=== PATIENT | male | born 1955 | race Caucasian/White ===

== ENCOUNTER 2017-11-09 17:32 | Inpatient (IN) | payer OTHER ==
[2017-11-09] MEDS: SOD CHLORIDE 0.9% 1,000 ML IV (18:07)
[2017-11-09 18:18] LABS: ADD MAN DIFF? NO
[2017-11-09 18:22] LABS: ABNORMAL IP MESSAGE 1; BASOPHILS % 0.4 % (0.0-2.0); EOSINOPHILS # 0.1 10^3/ul (0.0-0.5); EOSINOPHILS % 1.2 % (0.0-7.0); HEMATOCRIT 32.3 % (42.0-52.0); HEMOGLOBIN 9.9 g/dl (14.0-18.0); LYMPHOCYTES # 1.6 10^3/ul (0.8-2.9); LYMPHOCYTES % 17.4 % (15.0-51.0); MEAN CORPUSCULAR HEMOGLOBIN 23.8 pg (29.0-33.0); MEAN CORPUSCULAR HGB CONC 30.7 g/dl (32.0-37.0); MEAN CORPUSCULAR VOLUME 77.6 fl (82.0-101.0); MEAN PLATELET VOLUME 11.3 fl (7.4-10.4); MONOCYTE # 0.7 10^3/ul (0.3-0.9); MONOCYTES % 8.1 % (0.0-11.0); NEUTROPHIL # 6.6 10^3/ul (1.6-7.5); NEUTROPHILS % 72.7 % (39.0-77.0); PLATELET COUNT 275 10^3/UL (140-415); POSITIVE DIFF @See below; RED BLOOD COUNT 4.16 10^6/ul (4.70-6.10); RED CELL DISTRIBUTION WIDTH 22.8 % (11.5-14.5)
[2017-11-09 18:22] LABS: WHITE BLOOD COUNT 9.1 10^3/ul (4.8-10.8)
[2017-11-09 18:45] LABS: ALANINE AMINOTRANSFERASE 33 IU/L (13-69); ALBUMIN/GLOBULIN RATIO 1.42; ALKALINE PHOSPHATASE 76 IU/L (42-121); ANION GAP 20 (8-16); ASPARTATE AMINO TRANSFERASE 30 IU/L (15-46); BILIRUBIN,INDIRECT 0.4 mg/dl (0-1.1); BILIRUBIN,TOTAL 0.4 mg/dl (0.2-1.3); BLOOD UREA NITROGEN 27 mg/dl (7-20); CALCIUM 9.4 mg/dl (8.4-10.2); CARBON DIOXIDE 21 mmol/L (21-31); CHLORIDE 107 mmol/L (97-110); CREATININE 0.78 mg/dl (0.61-1.24); GLUCOSE 73 mg/dl (70-220); POTASSIUM 3.9 mmol/L (3.5-5.1); SODIUM 144 mmol/L (135-144); TOTAL PROTEIN 6.8 g/dl (6.1-8.1)
[2017-11-09 18:50] LABS: ACETAMINOPHEN < 10.0 ug/ml (10.0-30.0); ETHANOL < 10.0 mg/dl; SALICYLATE < 1.0 mg/dl (5.0-30.0)
[2017-11-09] MEDS: OLANZAPINE (ODT) 5 MG TAB ODT (20:16)
[2017-11-10 00:06] LABS: TROPONIN-I < 0.010 ng/ml (0.000-0.120)
[2017-11-10 00:09] LABS: ADD UMIC NO; UR ASCORBIC ACID NEGATIVE (NEGATIVE); UR BILIRUBIN (Dip) NEGATIVE (NEGATIVE); UR BLOOD (Dip) NEGATIVE (NEGATIVE); UR CLARITY CLEAR (CLEAR); UR COLOR YELLOW (YELLOW); UR GLUCOSE (Dip) NEGATIVE (NEGATIVE); UR KETONES (Dip) 2+ mg/dL (NEGATIVE); UR LEUKOCYTE ESTERASE (Dip) NEGATIVE Leu/ul (NEGATIVE); UR NITRITE (Dip) NEGATIVE (NEGATIVE); UR SPECIFIC GRAVITY (Dip) 1.023 (1.003-1.030); UR TOTAL PROTEIN (Dip) NEGATIVE (NEGATIVE); UR UROBILINOGEN (Dip) NEGATIVE (NEGATIVE)
[2017-11-10 00:19] LABS: AMPHETAMINE/METHAMPHETAMINE Negative (NEGATIVE); BARBITURATES Negative (NEGATIVE); BENZODIAZEPINES Negative (NEGATIVE); CANNABINOIDS Negative (NEGATIVE); COCAINE Negative (NEGATIVE); OPIATES Negative (NEGATIVE)
[2017-11-10] MEDS: OLANZAPINE (ODT) 5 MG TAB ODT ×3 (09:25→20:33)
[2017-11-11] MEDS ORDERED: NACL 0.9% 3 ML SYG IV (06:30)
[2017-11-11] MEDS ORDERED: ONDANSETRON 4 MG INJ IV (06:30)
[2017-11-11] MEDS ORDERED: ACETAMINOPHEN 325 MG TAB PO (06:30)
[2017-11-11] MEDS ORDERED: LORAZEPAM 2 MG INJ IV (06:30)
[2017-11-11] MEDS: SOD CHLORIDE 0.9% 500 ML IV (07:00)
[2017-11-11 08:42] LABS: ADD MAN DIFF? NO
[2017-11-11 08:53] LABS: ABNORMAL IP MESSAGE 1; BASOPHILS % 0.3 % (0.0-2.0); EOSINOPHILS # 0.3 10^3/ul (0.0-0.5); EOSINOPHILS % 4.2 % (0.0-7.0); HEMATOCRIT 32.8 % (42.0-52.0); HEMOGLOBIN 9.8 g/dl (14.0-18.0); LYMPHOCYTES # 1.5 10^3/ul (0.8-2.9); LYMPHOCYTES % 19.5 % (15.0-51.0); MEAN CORPUSCULAR HEMOGLOBIN 23.2 pg (29.0-33.0); MEAN CORPUSCULAR HGB CONC 29.9 g/dl (32.0-37.0); MEAN CORPUSCULAR VOLUME 77.5 fl (82.0-101.0); MEAN PLATELET VOLUME 11.3 fl (7.4-10.4); MONOCYTE # 0.6 10^3/ul (0.3-0.9); MONOCYTES % 7.1 % (0.0-11.0); NEUTROPHIL # 5.4 10^3/ul (1.6-7.5); NEUTROPHILS % 68.5 % (39.0-77.0); PLATELET COUNT 248 10^3/UL (140-415); POSITIVE DIFF @See below; RED BLOOD COUNT 4.23 10^6/ul (4.70-6.10); RED CELL DISTRIBUTION WIDTH 23.6 % (11.5-14.5)
[2017-11-11 08:53] LABS: WHITE BLOOD COUNT 7.9 10^3/ul (4.8-10.8)
[2017-11-11] MEDS ORDERED: OLANZAPINE 5 MG TAB PO (09:00)
[2017-11-11 09:01] LABS: IRON 15 ug/dl (35-150)
[2017-11-11 09:03] LABS: ALANINE AMINOTRANSFERASE 24 IU/L (13-69); ALBUMIN 3.1 g/dl (3.3-4.9); ALBUMIN/GLOBULIN RATIO 1.19; ALKALINE PHOSPHATASE 63 IU/L (42-121); ANION GAP 8 (8-16); ASPARTATE AMINO TRANSFERASE 17 IU/L (15-46); BLOOD UREA NITROGEN 20 mg/dl (7-20); CALCIUM 8.8 mg/dl (8.4-10.2); CARBON DIOXIDE 27 mmol/L (21-31); CHLORIDE 111 mmol/L (97-110); CREATININE 0.62 mg/dl (0.61-1.24); GLUCOSE 94 mg/dl (70-220); POTASSIUM 3.7 mmol/L (3.5-5.1); SODIUM 142 mmol/L (135-144); TOTAL PROTEIN 5.7 g/dl (6.1-8.1)
[2017-11-11 09:05] LABS: CREATINE KINASE 46 IU/L (23-200)
[2017-11-11 09:10] LABS: % IRON SATURATION 5 % SAT (22-52); TOTAL IRON BINDING CAPACITY 303 ug/dl (241-421)
[2017-11-11 09:16] LABS: CK INDEX 1.8; CK-MB 0.81 ng/ml (0.0-2.4); TROPONIN-I < 0.010 ng/ml (0.000-0.120)
[2017-11-11 09:18] LABS: FREE T4 (FREE THYROXINE) 0.97 ng/dl (0.78-2.44)
[2017-11-11 09:20] LABS: FREE T3 2.25 pg/ml (2.77-5.27)
[2017-11-11] MEDS ORDERED: ATROPINE 1 MG/10 ML SYRINGE IV ×2 (10:30→11:30)
[2017-11-11] MEDS: FERROUS SULFATE (EC) 325 MG TAB PO ×2 (13:58→20:46)
[2017-11-11 15:02] LABS: CREATINE KINASE 49 IU/L (23-200)
[2017-11-11 15:14] LABS: CK INDEX 1.4; CK-MB 0.69 ng/ml (0.0-2.4); TROPONIN-I < 0.010 ng/ml (0.000-0.120)
[2017-11-12] MEDS: FERROUS SULFATE (EC) 325 MG TAB PO ×3 (09:00→21:01)
[2017-11-12 09:32] LABS: MAGNESIUM 1.7 mg/dl (1.7-2.5)
[2017-11-12 09:41] LABS: HEMOGLOBIN A1C 5.1 % (0-5.9)
[2017-11-12] MEDS: SOD FERRIC GLUC COMPLX 125 MG in SOD CHLORIDE 0.9% 100 ML IVPB (17:48)
[2017-11-13] MEDS: FERROUS SULFATE (EC) 325 MG TAB PO ×3 (08:13→20:56)
[2017-11-13 09:20] LABS: ADD MAN DIFF? NO
[2017-11-13 09:27] LABS: WHITE BLOOD COUNT 7.9 10^3/ul (4.8-10.8)
[2017-11-13 09:27] LABS: ABNORMAL IP MESSAGE 1; BASOPHILS % 0.3 % (0.0-2.0); EOSINOPHILS # 0.3 10^3/ul (0.0-0.5); EOSINOPHILS % 4.2 % (0.0-7.0); HEMATOCRIT 35.1 % (42.0-52.0); HEMOGLOBIN 10.4 g/dl (14.0-18.0); LYMPHOCYTES # 1.6 10^3/ul (0.8-2.9); LYMPHOCYTES % 19.8 % (15.0-51.0); MEAN CORPUSCULAR HEMOGLOBIN 23.5 pg (29.0-33.0); MEAN CORPUSCULAR HGB CONC 29.6 g/dl (32.0-37.0); MEAN CORPUSCULAR VOLUME 79.2 fl (82.0-101.0); MONOCYTE # 0.7 10^3/ul (0.3-0.9); MONOCYTES % 8.4 % (0.0-11.0); NEUTROPHIL # 5.3 10^3/ul (1.6-7.5); NEUTROPHILS % 66.9 % (39.0-77.0); PLATELET COUNT 209 10^3/UL (140-415); POSITIVE DIFF @See below; RED BLOOD COUNT 4.43 10^6/ul (4.70-6.10); RED CELL DISTRIBUTION WIDTH 23.6 % (11.5-14.5)
[2017-11-13 09:51] LABS: MAGNESIUM 1.7 mg/dl (1.7-2.5)
[2017-11-13 10:21] LABS: ANION GAP 7 (8-16); BLOOD UREA NITROGEN 19 mg/dl (7-20); CALCIUM 8.8 mg/dl (8.4-10.2); CARBON DIOXIDE 32 mmol/L (21-31); CHLORIDE 107 mmol/L (97-110); CREATININE 0.64 mg/dl (0.61-1.24); GLUCOSE 94 mg/dl (70-220); POTASSIUM 3.8 mmol/L (3.5-5.1); SODIUM 142 mmol/L (135-144)
[2017-11-13 11:17] LABS: PHOSPHORUS 3.5 mg/dl (2.5-4.9)
[2017-11-13] MEDS ORDERED: COLLAGENASE 5 GM (UD JAR) TOP (11:30)
[2017-11-13] MEDS: BISACODYL (EC) 5 MG TAB PO (12:08)
[2017-11-13] MEDS: COLLAGENASE 5 GM (UD JAR) TOP (12:08)
[2017-11-13] MEDS: DOCUSATE SODIUM 100 MG CAP PO (12:08)
[2017-11-14 08:28] LABS: MAGNESIUM 1.7 mg/dl (1.7-2.5)
[2017-11-14] MEDS: FERROUS SULFATE (EC) 325 MG TAB PO ×3 (08:46→20:53)
[2017-11-14] MEDS: COLLAGENASE 5 GM (UD JAR) TOP (08:46)
[2017-11-14] MEDS: ESCITALOPRAM 10 MG TAB PO (15:29)
[2017-11-15] MEDS: FERROUS SULFATE (EC) 325 MG TAB PO ×3 (08:26→21:17)
[2017-11-15] MEDS: ESCITALOPRAM 10 MG TAB PO (08:26)
[2017-11-15] MEDS: COLLAGENASE 5 GM (UD JAR) TOP (08:32)
[2017-11-15 08:33] LABS: MAGNESIUM 1.8 mg/dl (1.7-2.5)
[2017-11-15] MEDS: ARIPIPRAZOLE 5 MG TAB PO (15:56)
[2017-11-16 07:46] LABS: MAGNESIUM 1.8 mg/dl (1.7-2.5)
[2017-11-16] MEDS: LORAZEPAM 2 MG INJ IV (07:49)
[2017-11-16] MEDS: HALOPERIDOL 5 MG INJ IM (07:49)
[2017-11-16] MEDS: FERROUS SULFATE (EC) 325 MG TAB PO ×3 (09:00→20:56)
[2017-11-16] MEDS: COLLAGENASE 5 GM (UD JAR) TOP (15:55)
[2017-11-16] MEDS: ESCITALOPRAM 10 MG TAB PO (15:55)
[2017-11-16] MEDS: ARIPIPRAZOLE 5 MG TAB PO (15:55)
[2017-11-17] MEDS: COLLAGENASE 5 GM (UD JAR) TOP (08:17)
[2017-11-17] MEDS: ARIPIPRAZOLE 5 MG TAB PO (08:17)
[2017-11-17] MEDS: ESCITALOPRAM 10 MG TAB PO (08:18)
[2017-11-17] MEDS: FERROUS SULFATE (EC) 325 MG TAB PO ×3 (08:18→20:40)
[2017-11-17] MEDS: LORAZEPAM 0.5 MG TAB PO (10:31)
[2017-11-18] MEDS: ARIPIPRAZOLE 5 MG TAB PO (08:34)
[2017-11-18] MEDS: COLLAGENASE 5 GM (UD JAR) TOP (08:34)
[2017-11-18] MEDS: ESCITALOPRAM 10 MG TAB PO (08:35)
[2017-11-18] MEDS: FERROUS SULFATE (EC) 325 MG TAB PO ×3 (08:35→21:09)
[2017-11-19] MEDS: ESCITALOPRAM 10 MG TAB PO (08:46)
[2017-11-19] MEDS: FERROUS SULFATE (EC) 325 MG TAB PO ×3 (08:46→20:25)
[2017-11-19] MEDS: ARIPIPRAZOLE 5 MG TAB PO (08:46)
[2017-11-19] MEDS: COLLAGENASE 5 GM (UD JAR) TOP (08:46)
[2017-11-19 16:54] LABS: ADD MAN DIFF? NO
[2017-11-19 16:55] LABS: ABNORMAL IP MESSAGE 1; BASOPHIL # 0.1 10^3/ul (0.0-0.1); BASOPHILS % 0.8 % (0.0-2.0); EOSINOPHILS # 0.2 10^3/ul (0.0-0.5); EOSINOPHILS % 2.8 % (0.0-7.0); HEMATOCRIT 32.5 % (42.0-52.0); HEMOGLOBIN 9.5 g/dl (14.0-18.0); LYMPHOCYTES # 1.9 10^3/ul (0.8-2.9); LYMPHOCYTES % 29.5 % (15.0-51.0); MEAN CORPUSCULAR HEMOGLOBIN 23.1 pg (29.0-33.0); MEAN CORPUSCULAR HGB CONC 29.2 g/dl (32.0-37.0); MEAN CORPUSCULAR VOLUME 79.1 fl (82.0-101.0); MONOCYTE # 0.6 10^3/ul (0.3-0.9); MONOCYTES % 9.9 % (0.0-11.0); NEUTROPHIL # 3.7 10^3/ul (1.6-7.5); NEUTROPHILS % 56.7 % (39.0-77.0); PLATELET COUNT 202 10^3/UL (140-415); POSITIVE DIFF @See below; RED BLOOD COUNT 4.11 10^6/ul (4.70-6.10)
[2017-11-19 16:55] LABS: WHITE BLOOD COUNT 6.4 10^3/ul (4.8-10.8)
[2017-11-20] MEDS: ESCITALOPRAM 10 MG TAB PO (08:55)
[2017-11-20] MEDS: COLLAGENASE 5 GM (UD JAR) TOP (08:55)
[2017-11-20] MEDS: ARIPIPRAZOLE 5 MG TAB PO (08:55)
[2017-11-20] MEDS: FERROUS SULFATE (EC) 325 MG TAB PO ×3 (08:55→20:50)
[2017-11-21] MEDS: ARIPIPRAZOLE 5 MG TAB PO (09:14)
[2017-11-21] MEDS: ESCITALOPRAM 10 MG TAB PO (09:14)
[2017-11-21] MEDS: COLLAGENASE 5 GM (UD JAR) TOP (09:14)
[2017-11-21] MEDS: FERROUS SULFATE (EC) 325 MG TAB PO ×4 (09:14→21:55)
[2017-11-22] MEDS: ESCITALOPRAM 10 MG TAB PO (08:59)
[2017-11-22] MEDS: FERROUS SULFATE (EC) 325 MG TAB PO ×3 (08:59→21:00)
[2017-11-22] MEDS: ARIPIPRAZOLE 5 MG TAB PO (08:59)
[2017-11-22] MEDS: COLLAGENASE 5 GM (UD JAR) TOP (16:53)
[2017-11-23] MEDS: ARIPIPRAZOLE 5 MG TAB PO (08:56)
[2017-11-23] MEDS: FERROUS SULFATE (EC) 325 MG TAB PO ×3 (08:56→21:02)
[2017-11-23] MEDS: ESCITALOPRAM 10 MG TAB PO (08:56)
[2017-11-23] MEDS: COLLAGENASE 5 GM (UD JAR) TOP (13:05)
[2017-11-24] MEDS: ACETAMINOPHEN 325 MG TAB PO (01:58)
[2017-11-24] MEDS: ARIPIPRAZOLE 5 MG TAB PO (08:32)
[2017-11-24] MEDS: FERROUS SULFATE (EC) 325 MG TAB PO ×3 (08:32→20:59)
[2017-11-24] MEDS: ESCITALOPRAM 10 MG TAB PO (08:32)
[2017-11-24] MEDS: COLLAGENASE 5 GM (UD JAR) TOP (08:33)
[2017-11-25] MEDS: ESCITALOPRAM 10 MG TAB PO (09:05)
[2017-11-25] MEDS: FERROUS SULFATE (EC) 325 MG TAB PO ×3 (09:05→20:51)
[2017-11-25] MEDS: ARIPIPRAZOLE 5 MG TAB PO (09:05)
[2017-11-25] MEDS: COLLAGENASE 5 GM (UD JAR) TOP (09:05)
[2017-11-26] MEDS: ARIPIPRAZOLE 5 MG TAB PO (08:26)
[2017-11-26] MEDS: ESCITALOPRAM 10 MG TAB PO (08:26)
[2017-11-26] MEDS: COLLAGENASE 5 GM (UD JAR) TOP (08:26)
[2017-11-26] MEDS: FERROUS SULFATE (EC) 325 MG TAB PO ×3 (08:26→21:41)
[2017-11-27] MEDS: ESCITALOPRAM 10 MG TAB PO (08:53)
[2017-11-27] MEDS: FERROUS SULFATE (EC) 325 MG TAB PO ×3 (08:53→21:14)
[2017-11-27] MEDS: ARIPIPRAZOLE 5 MG TAB PO (08:53)
[2017-11-27] MEDS: COLLAGENASE 5 GM (UD JAR) TOP (08:54)
[2017-11-28] MEDS: COLLAGENASE 5 GM (UD JAR) TOP (08:46)
[2017-11-28] MEDS: ARIPIPRAZOLE 5 MG TAB PO (08:46)
[2017-11-28] MEDS: FERROUS SULFATE (EC) 325 MG TAB PO ×3 (08:47→22:13)
[2017-11-28] MEDS: ESCITALOPRAM 10 MG TAB PO (08:47)
[2017-11-29] MEDS: ESCITALOPRAM 10 MG TAB PO (08:45)
[2017-11-29] MEDS: FERROUS SULFATE (EC) 325 MG TAB PO ×3 (08:45→21:25)
[2017-11-29] MEDS: ARIPIPRAZOLE 5 MG TAB PO (08:45)
[2017-11-29] MEDS: COLLAGENASE 5 GM (UD JAR) TOP (14:18)
[2017-11-30] MEDS: ARIPIPRAZOLE 5 MG TAB PO (08:22)
[2017-11-30] MEDS: FERROUS SULFATE (EC) 325 MG TAB PO ×3 (08:22→20:19)
[2017-11-30] MEDS: COLLAGENASE 5 GM (UD JAR) TOP (08:22)
[2017-11-30] MEDS: ESCITALOPRAM 10 MG TAB PO (08:22)
[2017-12-01] MEDS: ARIPIPRAZOLE 5 MG TAB PO (09:00)
[2017-12-01] MEDS: FERROUS SULFATE (EC) 325 MG TAB PO ×3 (09:00→20:58)
[2017-12-01] MEDS: ESCITALOPRAM 10 MG TAB PO (09:00)
[2017-12-01] MEDS: COLLAGENASE 5 GM (UD JAR) TOP (09:00)
[2017-12-02] MEDS: FERROUS SULFATE (EC) 325 MG TAB PO ×3 (09:14→20:00)
[2017-12-02] MEDS: ARIPIPRAZOLE 5 MG TAB PO (09:14)
[2017-12-02] MEDS: COLLAGENASE 5 GM (UD JAR) TOP (09:15)
[2017-12-02] MEDS: ESCITALOPRAM 10 MG TAB PO (09:15)
[2017-12-03] MEDS: FERROUS SULFATE (EC) 325 MG TAB PO ×3 (09:23→21:00)
[2017-12-03] MEDS: ESCITALOPRAM 10 MG TAB PO (09:23)
[2017-12-03] MEDS: COLLAGENASE 5 GM (UD JAR) TOP (09:23)
[2017-12-03] MEDS: ARIPIPRAZOLE 5 MG TAB PO (09:23)
[2017-12-04] MEDS: ESCITALOPRAM 10 MG TAB PO (09:00)
[2017-12-04] MEDS: ARIPIPRAZOLE 5 MG TAB PO (09:00)
[2017-12-04] MEDS: COLLAGENASE 5 GM (UD JAR) TOP (09:00)
[2017-12-04] MEDS: FERROUS SULFATE (EC) 325 MG TAB PO ×2 (09:00→13:00)
== END 2017-12-04 19:17 | DRG 308 ==
LOC: PP2 11-21 08:20 → REC 12-04 17:10 → E/R 17:32 → PP2 12-04 17:10 → MS4 11-11 06:16 → PP2 11-19 18:38
PROVIDERS: Family Medicine
DX: R00.1 Bradycardia, unspecified (principal); L89.323 Pressure ulcer of left buttock, stage 3; L89.153 Pressure ulcer of sacral region, stage 3; R45.851 Suicidal ideations; E44.0 Moderate protein-calorie malnutrition; Z68.1 Body mass index [BMI] 19.9 or less, adult; E86.0 Dehydration; F29 Unspecified psychosis not due to a substance or known physiological condition; D50.9 Iron deficiency anemia, unspecified; R45.1 Restlessness and agitation; F25.0 Schizoaffective disorder, bipolar type
CPT/HCPCS: 36415; 71045; 80048; 80053; 80307; 81003; 82550; 82553; 83036; 83540; 83735; 84100; 84439; 84443; 84481; 84484; 85025; 93005; 93306; 97110; 97116; 97162; 97530; 99285-25